=== PATIENT | female | born 1970 | race Caucasian/White ===

== ENCOUNTER 2020-08-14 14:39 | Inpatient (IN) | payer MEDICARE, MEDICAID ==
[~2020-08-14] VITALS: Ht 165.1 cm; Wt 58.1 kg
[2020-08-14 14:45] VITALS: BP 119/89
[2020-08-14] MEDS ORDERED: ZOLOFT100 MG PO (14:51)
[2020-08-14] MEDS ORDERED: ABILIFY10 MG PO (14:51)
[2020-08-14] MEDS ORDERED: METHOTREXA25 MG/1 M1 IM (14:51)
[2020-08-14] MEDS ORDERED: ZANAFLEX4 M1 PO (14:52)
[2020-08-14 15:47] LABS: ABSOLUTE BASOPHILS 0.1 thou/uL (0.0-0.2); ABSOLUTE EOSINOPHILS 0.6 thou/uL (0.0-0.7); ABSOLUTE LYMPHOCYTES 2.2 thou/uL (0.8-5.3); ABSOLUTE MONOCYTES 0.3 thou/uL (0.0-1.2); ABSOLUTE NEUTROPHILS 4.1 thou/uL (1.6-8.1); BASOPHILS 0.9 %; EOSINOPHILS 8.5 %; HEMATOCRIT 37.5 % (37.0-47.0); HEMOGLOBIN 12.6 gm/dL (12.0-15.0); LYMPHOCYTES 30.2 %; MCH 29.6 pg (26.0-34.0); MCHC 33.5 g/dL (28.0-37.0); MCV 88.5 fL (80.0-100.0); MONOCYTES 4.5 %; MPV 6.8 fl. (7.2-11.1); NUCLEATED RBCS 0 /100WBC; PLATELET COUNT* 317 thou/uL (150-400); POLYS 55.9 %; RBC 4.24 mil/uL (4.20-5.00); RDW-CV 13.9 % (10.5-14.5); WBC 7.3 thou/uL (4.0-11.0)
[2020-08-14 15:57] LABS: CALCIUM 8.7 mg/dL (8.5-10.1); CREATININE 0.7 mg/dL (0.6-1.3); POTASSIUM 3.9 mmol/L (3.5-5.1)
[2020-08-14 16:00] LABS: APTT 27.1 Seconds (25.0-31.3); PROTIME 10.3 Seconds (9.20-11.50)
[2020-08-14 16:22] LABS: ALBUMIN 3.5 g/dL (3.4-5.0); CK-MB MASS 0.6 ng/mL (<0.5-3.6); MAGNESIUM 2.3 mg/dL (1.8-2.4); TOTAL BILIRUBIN 0.5 mg/dL (<0.1-1.0); TOTAL PROTEIN 7.4 g/dL (6.4-8.2)
[2020-08-14] MEDS ORDERED: HYDROCODON-ACE1 EAC7 PO (18:45)
[2020-08-14 20:37] VITALS: BP 120/60
[2020-08-15 08:00] VITALS: BP 102/69
--- NOTE | 2020-08-15 09:34 | EKG ---
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: OVIDIO : 1970 Requested By: Neo Herrera Order Number: [id number] MD: Rodrick Perez Measurements Intervals [place] Rate: 84 P: 49 MS: 151 QRS: 62 QRSD: 82 T: 54 QT: 385 QTc: 456 Interpretive Statements Sinus rhythm Anterior infarct, old No previous ECG available for comparison Electronically Signed On 08-15-2020 9:34:10 CDT by Rodrick Perez [email or web address] <ELECTRONICALLY SIGNED> By: Rodrick Perez MD, [facility] 08/15/20 0934 1453 1453 Rodrick Perez MD, [facility] /EPI
--- NOTE | 2020-08-15 09:38 | EKG ---
[place] [address] ELECTROCARDIOGRAM REPORT Name: AMEE HEATH Room: [address]#: [id number] Admission: 08/14/20 Attend Phys: Maren Mcfarlane, Discharge: Date of : 72 Date of Service: 08/15/20 012 Report #: [id number] THIS REPORT FOR: //name// [facility] Test Date: 2020-08-15 Test Time: 01:21:01 Pat Name: AMEE HEATH Department: Room: [address] Gender: F Rodding Machine Tender: CSCHNORF : 1970 Requested By: Maren Mcfarlane Order Number: [id number] Keyshawn MD: Rodrick Perez Measurements Intervals [place] Rate: 66 P: 55 MT: 153 QRS: 70 QRSD: 86 T: 58 QT: 440 QTc: 461 Interpretive Statements Sinus rhythm Electronically Signed On 08-15-2020 9:38:16 CDT by Rodrick Perez [email or web address] <ELECTRONICALLY SIGNED> By: Rodrick Perez MD, [facility] 08/15/20 0938 0121 012 Rodrick Perez MD, FACC /EPI
[2020-08-15 12:00] VITALS: BP 113/68
[2020-08-15 16:00] VITALS: BP 114/74
[2020-08-15 20:35] VITALS: BP 132/72
[2020-08-16] VITALS (7 sets, daily range): BP systolic 112–136; BP diastolic 55–79
[2020-08-16 05:48] LABS: HEMATOCRIT 36.2 % (37.0-47.0); MCH 29.2 pg (26.0-34.0); MCHC 33.2 g/dL (28.0-37.0); MCV 87.8 fL (80.0-100.0); MPV 6.9 fl. (7.2-11.1); RBC 4.12 mil/uL (4.20-5.00); RDW-CV 13.8 % (10.5-14.5); WBC 5.8 thou/uL (4.0-11.0)
[2020-08-16 06:13] LABS: CALCIUM 8.7 mg/dL (8.5-10.1); CREATININE 0.6 mg/dL (0.6-1.3); POTASSIUM 4.3 mmol/L (3.5-5.1)
[2020-08-16] MEDS ORDERED: VALTREX 500 MG500 M1 PO (09:25)
[2020-08-16] MEDS ORDERED: NORCO5 PO (09:25)
== END 2020-08-16 14:35 | disposition home or self-care (01) | DRG 596 ==
LOC: M.ERS 14:39 → M.2W 19:05 → M.TBA-ER 19:05 → M.2W 20:42
PROVIDERS: Emergency Medicine Emergency Medical Services; Family Medicine; ADMIT Internal Medicine; ATTEND Internal Medicine
DX: B02.9 Zoster without complications (principal); F32.9 Major depressive disorder, single episode, unspecified; Z20.822 Contact with and (suspected) exposure to COVID-19; Z88.2 Allergy status to sulfonamides; Z88.8 Allergy status to other drugs, medicaments and biological substances; Z79.899 Other long term (current) drug therapy

== ENCOUNTER 2020-09-15 11:16 | Emergency (ER) | payer MEDICARE, MEDICAID ==
[~2020-09-15] VITALS: Ht 165.1 cm; Wt 59.0 kg
[~2020-09-15 11:16] MED LIST: ABILIFY10 MG PO; HYDROCODON-ACE1 EAC7 PO; METHOTREXA25 MG/1 M1 IM; NORCO5 PO; VALTREX 500 MG500 M1 PO; ZANAFLEX4 M1 PO; ZOLOFT100 MG PO
[2020-09-15] MEDS ORDERED: MOBIC7.5 MG PO (11:26)
[2020-09-15] MEDS ORDERED: ABILIFY10 MG PO (11:26)
[2020-09-15] MEDS ORDERED: PREDNISONE 20 M20 MG PO (11:27)
[2020-09-15] MEDS ORDERED: PERCOCET PO (11:33)
[2020-09-15 12:07] VITALS: BP 150/81
== END 2020-09-15 12:08 | disposition home or self-care (01) ==
LOC: M.ERS 11:16
DX: G89.29 Other chronic pain (principal); M32.9 Systemic lupus erythematosus, unspecified; Z91.041 Radiographic dye allergy status; Z88.2 Allergy status to sulfonamides; Z90.710 Acquired absence of both cervix and uterus; Z90.49 Acquired absence of other specified parts of digestive tract

== ENCOUNTER 2020-09-20 13:34 | Emergency (ER) | payer MEDICARE, MEDICAID ==
[~2020-09-20] VITALS: Ht 165.1 cm; Wt 59.0 kg
[~2020-09-20 13:34] MED LIST changes: +MOBIC7.5 MG PO; +PERCOCET PO; +PREDNISONE 20 M20 MG PO
[2020-09-20 13:58] LABS: URINE BILIRUBIN NEGATIVE (Negative); URINE BLOOD 1+ (Negative); URINE CLARITY CLEAR; URINE COLOR YELLOW; URINE GLUCOSE-RANDOM NEGATIVE (Negative); URINE KETONES NEGATIVE (Negative); URINE LEUKOCYTES NEGATIVE (Negative); URINE NITRITE NEGATIVE (Negative); URINE PROTEIN NEGATIVE (Negative); URINE SPECIFIC GRAVITY >= 1.030 (1.005-1.030); URINE UROBILINOGEN 0.2 E.U./dl (0.2-1.0)
[2020-09-20 14:00] LABS: HEMATOCRIT 38.2 % (37.0-47.0); HEMOGLOBIN 12.9 gm/dL (12.0-15.0); MCH 30.3 pg (26.0-34.0); MCHC 33.9 g/dL (28.0-37.0); MCV 89.5 fL (80.0-100.0); MPV 6.6 fl. (7.2-11.1); RBC 4.26 mil/uL (4.20-5.00); RDW-CV 16.1 % (10.5-14.5); WBC 10.7 thou/uL (4.0-11.0)
[2020-09-20 14:06] LABS: SQUAMOUS 0-3 Few /LPF (0-3)
[2020-09-20 14:06] LABS: AMP/METHAMP Negative (Negative); BARBITURATES Negative (Negative); BENZODIAZEPINES Negative (Negative); COCAINE Negative (Negative); METHADONE Negative (Negative); OPIATES Negative (Negative); PCP Negative (Negative); THC Negative (Negative)
[2020-09-20 14:07] LABS: BACTERIA 1-9 Few /HPF (None Seen); CASTS None Seen /LPF (None Seen); CRYSTALS None Seen /LPF (None Seen); MUCUS None Seen strn/LPF (None Seen); URINE RBC 0-2 Rare /HPF (0-2); URINE WBC None Seen /HPF (0-5)
[2020-09-20 14:09] LABS: CALCIUM 8.5 mg/dL (8.5-10.1); CREATININE 0.8 mg/dL (0.6-1.3); POTASSIUM 3.9 mmol/L (3.5-5.1)
[2020-09-20 14:14] LABS: ALBUMIN 3.8 g/dL (3.4-5.0); TOTAL BILIRUBIN 0.5 mg/dL (<0.1-1.0); TOTAL PROTEIN 7.4 g/dL (6.4-8.2)
[2020-09-20 15:21] VITALS: BP 143/89
--- NOTE | 2020-09-21 12:01 | EKG ---
[place] [address] ELECTROCARDIOGRAM REPORT Name: AMEE HEATH Room: [facility]#: [id number] Admission: 09/20/20 Attend Phys: Discharge: 09/20/20 Date of : 72 Date of Service: 09/20/20 1340 Report #: [id number] THIS REPORT FOR: //name// [facility] ED Test Date: 2020-09-20 Test Time: 13:40:46 Pat Name: AMEE HEATH Department: Room: Gender: F Litigation Legal Secretary: JOSE GUADALUPE : 1970 Requested By: Lemuel Sanchez Order Number: [id number] MD: William Roldan Measurements Intervals [place] Rate: 101 P: 62 [place]: 154 QRS: 75 QRSD: 80 T: 54 QT: 355 QTc: 461 Interpretive Statements Sinus tachycardia Consider right atrial enlargement Probable anteroseptal infarct, old Compared to ECG 08/15/2020 01:21:01 Myocardial infarct finding now present Sinus rhythm no longer present Electronically Signed On 09-21-2020 12:01:20 CDT by William Roldan [email or web address] <ELECTRONICALLY SIGNED> By: Bharat Roldan MD, [facility] 09/21/20 1201 1340 1340 Bharat Roldan MD, [facility] /EPI
== END 2020-09-20 15:22 | disposition home or self-care (01) ==
LOC: M.ERS 13:34
PROVIDERS: Emergency Medicine
DX: F41.9 Anxiety disorder, unspecified (principal); R42 Dizziness and giddiness; R51.9 Headache, unspecified; F17.210 Nicotine dependence, cigarettes, uncomplicated; Z91.041 Radiographic dye allergy status; Z88.2 Allergy status to sulfonamides; Z88.8 Allergy status to other drugs, medicaments and biological substances; Z90.710 Acquired absence of both cervix and uterus; Z90.49 Acquired absence of other specified parts of digestive tract; Z79.899 Other long term (current) drug therapy

== ENCOUNTER 2020-09-26 18:19 | Emergency (ER) | payer MEDICARE, MEDICAID ==
[~2020-09-26] VITALS: Ht 165.1 cm; Wt 61.2 kg
[2020-09-26] MEDS ORDERED: PREDNISONE 20 M20 M1 PO (19:05)
[2020-09-26] MEDS ORDERED: MOBIC7.5 MG PO (19:05)
[2020-09-26 20:34] LABS: ABSOLUTE BASOPHILS 0.1 thou/uL (0.0-0.2); ABSOLUTE EOSINOPHILS 0.3 thou/uL (0.0-0.7); ABSOLUTE LYMPHOCYTES 2.8 thou/uL (0.8-5.3); ABSOLUTE MONOCYTES 0.7 thou/uL (0.0-1.2); ABSOLUTE NEUTROPHILS 5.5 thou/uL (1.6-8.1); BASOPHILS 1.1 %; EOSINOPHILS 3.5 %; HEMATOCRIT 40.9 % (37.0-47.0); HEMOGLOBIN 13.7 gm/dL (12.0-15.0); LYMPHOCYTES 29.6 %; MCH 30.3 pg (26.0-34.0); MCHC 33.5 g/dL (28.0-37.0); MCV 90.5 fL (80.0-100.0); MONOCYTES 7.2 %; MPV 6.7 fl. (7.2-11.1); NUCLEATED RBCS 0 /100WBC; PLATELET COUNT* 301 thou/uL (150-400); POLYS 58.6 %; RBC 4.52 mil/uL (4.20-5.00); RDW-CV 16.5 % (10.5-14.5); WBC 9.4 thou/uL (4.0-11.0)
[2020-09-26 20:39] LABS: CALCIUM 9.1 mg/dL (8.5-10.1); CREATININE 0.7 mg/dL (0.6-1.3); POTASSIUM 3.8 mmol/L (3.5-5.1)
[2020-09-26 20:44] LABS: ALBUMIN 4.2 g/dL (3.4-5.0); TOTAL BILIRUBIN 0.5 mg/dL (<0.1-1.0)
[2020-09-26] MEDS ORDERED: VISTARIL 25 MG25 M1 PO (21:18)
[2020-09-26 21:30] VITALS: BP 115/65
--- NOTE | 2020-09-27 11:40 | EKG ---
[place] [address] ELECTROCARDIOGRAM REPORT Name: AMEE HEATH Room: [facility]#: [id number] Admission: 09/26/20 Attend Phys: Discharge: 09/26/20 Date of : 72 Date of Service: 09/26/20 1826 Report #: [id number] THIS REPORT FOR: //name// [facility] ED Test Date: 2020-09-26 Test Time: 18:26:29 Pat Name: AMEE HEATH Department: Room: Gender: Court Transcriber: : 1970 Requested By: Rosalia Zarate Order Number: [id number] MD: Rodrick Perez Measurements Intervals [place] Rate: 90 P: 68 [place]: 165 QRS: 66 QRSD: 86 T: 44 QT: 376 QTc: 460 Interpretive Statements Sinus rhythm Compared to ECG 09/20/2020 13:40:46 Sinus tachycardia no longer present Electronically Signed On 09-27-2020 11:39:52 CDT by Rodrick Perez [email or web address] <ELECTRONICALLY SIGNED> By: Rodrick Perez MD, [facility] 09/27/20 1139 1826 1826 Rodrick Perez MD, [facility] /EPI
== END 2020-09-26 21:33 | disposition home or self-care (01) ==
LOC: M.ERS 18:19
PROVIDERS: Physician Assistant
DX: F41.9 Anxiety disorder, unspecified (principal); R07.89 Other chest pain; M79.662 Pain in left lower leg; M32.9 Systemic lupus erythematosus, unspecified; M06.9 Rheumatoid arthritis, unspecified; F17.210 Nicotine dependence, cigarettes, uncomplicated; Z91.041 Radiographic dye allergy status; Z88.2 Allergy status to sulfonamides; Z90.49 Acquired absence of other specified parts of digestive tract; Z90.710 Acquired absence of both cervix and uterus; Z88.8 Allergy status to other drugs, medicaments and biological substances

== ENCOUNTER 2020-10-08 22:00 | Emergency (ER) | payer MEDICARE, MEDICAID ==
[~2020-10-08] VITALS: Ht 165.1 cm; Wt 62.6 kg
[~2020-10-08 22:00] MED LIST changes: +PREDNISONE 20 M20 M1 PO; +VISTARIL 25 MG25 M1 PO
[2020-10-08] MEDS ORDERED: ACYCLOVIR 800800 MG PO (22:09)
[2020-10-08] MEDS ORDERED: NEURONTIN 300M300 M2 PO (22:10)
[2020-10-08] MEDS ORDERED: PROTONIX40 M4 PO (22:10)
[2020-10-08] MEDS ORDERED: BUPROPION HCL150 M1 PO (22:10)
[2020-10-08 23:46] VITALS: BP 132/92
== END 2020-10-08 23:47 | disposition home or self-care (01) ==
LOC: M.ERS 22:00
DX: S83.8X1A Sprain of other specified parts of right knee, initial encounter (principal); M32.9 Systemic lupus erythematosus, unspecified; M06.9 Rheumatoid arthritis, unspecified; F17.210 Nicotine dependence, cigarettes, uncomplicated; Z90.49 Acquired absence of other specified parts of digestive tract; Z90.710 Acquired absence of both cervix and uterus; Z91.041 Radiographic dye allergy status; Z88.2 Allergy status to sulfonamides; Z88.8 Allergy status to other drugs, medicaments and biological substances; W01.0XXA Fall on same level from slipping, tripping and stumbling without subsequent striking against object, initial encounter; Y93.89 Activity, other specified; Y92.89 Other specified places as the place of occurrence of the external cause; Y99.8 Other external cause status

== ENCOUNTER → 2020-10-20 | Outpatient (CLI) | payer MEDICARE, MEDICAID ==
[~2020-10-20] MED LIST changes: +ACYCLOVIR 800800 MG PO; +BUPROPION HCL150 M1 PO; +NEURONTIN 300M300 M2 PO; +PROTONIX40 M4 PO
== END ==
LOC: M.CT 12:53
PROVIDERS: ATTEND Family Medicine
DX: R10.31 Right lower quadrant pain (principal)

== ENCOUNTER 2020-10-25 23:10 | Emergency (ER) | payer MEDICARE, MEDICAID ==
[~2020-10-25] VITALS: Ht 165.1 cm; Wt 63.5 kg
[2020-10-26 02:23] LABS: ABSOLUTE BASOPHILS 0.1 thou/uL (0.0-0.2); ABSOLUTE EOSINOPHILS 0.5 thou/uL (0.0-0.7); ABSOLUTE LYMPHOCYTES 2.4 thou/uL (0.8-5.3); ABSOLUTE MONOCYTES 0.8 thou/uL (0.0-1.2); ABSOLUTE NEUTROPHILS 7.6 thou/uL (1.6-8.1); BASOPHILS 0.9 %; EOSINOPHILS 4.3 %; HEMATOCRIT 37.3 % (37.0-47.0); HEMOGLOBIN 12.4 gm/dL (12.0-15.0); LYMPHOCYTES 21.4 %; MCH 29.6 pg (26.0-34.0); MCHC 33.3 g/dL (28.0-37.0); MONOCYTES 6.7 %; MPV 6.8 fl. (7.2-11.1); NUCLEATED RBCS 0 /100WBC; PLATELET COUNT* 280 thou/uL (150-400); POLYS 66.7 %; RBC 4.19 mil/uL (4.20-5.00); RDW-CV 15.1 % (10.5-14.5); WBC 11.4 thou/uL (4.0-11.0)
[2020-10-26 02:28] LABS: CALCIUM 8.3 mg/dL (8.5-10.1); CREATININE 0.8 mg/dL (0.6-1.3); POTASSIUM 4.1 mmol/L (3.5-5.1)
[2020-10-26 02:38] LABS: ALBUMIN 3.8 g/dL (3.4-5.0); TOTAL BILIRUBIN 0.3 mg/dL (<0.1-1.0); TOTAL PROTEIN 7.1 g/dL (6.4-8.2)
[2020-10-26] MEDS ORDERED: CYCLOBENZAPRINE5 MG PO (03:50)
[2020-10-26] MEDS ORDERED: TORADOL 10 MG T10 MG PO (03:50)
[2020-10-26 04:07] VITALS: BP 128/82
== END 2020-10-26 04:07 | disposition home or self-care (01) ==
LOC: M.ERS 23:10
PROVIDERS: Personal Emergency Response Attendant
DX: M43.6 Torticollis (principal); M06.9 Rheumatoid arthritis, unspecified; M32.9 Systemic lupus erythematosus, unspecified; F17.210 Nicotine dependence, cigarettes, uncomplicated; Z91.041 Radiographic dye allergy status; Z88.2 Allergy status to sulfonamides; Z88.8 Allergy status to other drugs, medicaments and biological substances; Z90.49 Acquired absence of other specified parts of digestive tract; Z90.710 Acquired absence of both cervix and uterus

== ENCOUNTER 2020-10-31 16:26 | Emergency (ER) | payer MEDICARE, MEDICAID ==
[~2020-10-31] VITALS: Ht 167.6 cm; Wt 63.5 kg
--- NOTE | ~2020-10-31 | EKG ---
[place] [address] ELECTROCARDIOGRAM REPORT Name: AMEE HEATH Room: [facility]#: [id number] Admission: 10/31/20 Attend Phys: Discharge: 10/31/20 Date of : [birth year] Date of Service: 10/31/201842 Report #: [id number] THIS REPORT FOR: //name// [facility] ED Test Date: 2020-10-31 Test Time: 18:43:55 Pat Name: AMEE HEATH Department: Room: Gender: F Detailer School Photographs: TB : 1970 Requested By: Rosalia Zaarte Order Number: [id number] MD: Measurements Intervals [place] Rate: 84 P: 59 MT: 166 QRS: 59 QRSD: 89 T: 44 QT: 371 QTc: 439 Interpretive Statements Sinus rhythm Anteroseptal infarct, age indeterminate Compared to ECG 09/26/2020 18:26:29 Myocardial infarct finding now present [email or web address] By: 42 1843 Epiphany Epiphany, /EPI
[~2020-10-31 16:26] MED LIST changes: +CYCLOBENZAPRINE5 MG PO; +TORADOL 10 MG T10 MG PO
[2020-10-31 18:40] LABS: URINE BILIRUBIN NEGATIVE (Negative); URINE BLOOD TRACE (Negative); URINE COLOR YELLOW; URINE GLUCOSE-RANDOM NEGATIVE (Negative); URINE KETONES NEGATIVE (Negative); URINE LEUKOCYTES-REFLEX TRACE (Negative); URINE NITRITE-REFLEX NEGATIVE (Negative); URINE PROTEIN NEGATIVE (Negative); URINE SPECIFIC GRAVITY >= 1.030 (1.005-1.030); URINE UROBILINOGEN 0.2 E.U./dl (0.2-1.0)
[2020-10-31 18:42] LABS: URINE CLARITY HAZY
[2020-10-31 18:55] LABS: BACTERIA-REFLEX None Seen /HPF (None Seen); CASTS None Seen /LPF (None Seen); CRYSTALS None Seen /LPF (None Seen); SQUAMOUS 0-3 Few /LPF (0-3); URINE RBC None Seen /HPF (0-2); URINE WBC-REFLEX 0-5 Rare /HPF (0-5)
[2020-10-31 18:57] LABS: ABSOLUTE BASOPHILS 0.1 thou/uL (0.0-0.2); ABSOLUTE EOSINOPHILS 0.6 thou/uL (0.0-0.7); ABSOLUTE LYMPHOCYTES 2.6 thou/uL (0.8-5.3); ABSOLUTE MONOCYTES 0.5 thou/uL (0.0-1.2); ABSOLUTE NEUTROPHILS 7.5 thou/uL (1.6-8.1); BASOPHILS 0.9 %; EOSINOPHILS 5.2 %; HEMATOCRIT 40.3 % (37.0-47.0); HEMOGLOBIN 13.1 gm/dL (12.0-15.0); MCH 29.2 pg (26.0-34.0); MCHC 32.6 g/dL (28.0-37.0); MCV 89.4 fL (80.0-100.0); MONOCYTES 4.6 %; MPV 7.1 fl. (7.2-11.1); NUCLEATED RBCS 0 /100WBC; PLATELET COUNT* 290 thou/uL (150-400); POLYS 66.3 %; RBC 4.51 mil/uL (4.20-5.00); RDW-CV 15.1 % (10.5-14.5); WBC 11.2 thou/uL (4.0-11.0)
[2020-10-31 19:03] LABS: CALCIUM 8.9 mg/dL (8.5-10.1); POTASSIUM 4.4 mmol/L (3.5-5.1)
[2020-10-31 19:08] LABS: ALBUMIN 4.1 g/dL (3.4-5.0); TOTAL BILIRUBIN 0.5 mg/dL (<0.1-1.0); TOTAL PROTEIN 7.8 g/dL (6.4-8.2)
[2020-10-31] MEDS ORDERED: NORCO5 PO ×2 (20:54→21:04)
[2020-10-31 21:16] VITALS: BP 131/70
--- NOTE | 2020-11-01 10:31 | EKG ---
[place] [address] ELECTROCARDIOGRAM REPORT Name: MARITA HEATHA MARIE Room: [facility]#: [id number] Admission: 10/31/20 Attend Phys: Discharge: 10/31/20 Date of : 72 Date of Service: 10/31/20 1843 Report #: [id number] THIS REPORT FOR: //name// [facility] ED Test Date: 2020-10-31 Test Time: 18:43:55 Pat Name: AMEE HEATH Department: Room: Gender: F Clinical Account Manager: TB : 1970 Requested By: Rosalia Zarate Order Number: [id number] MD: Rodrick Perez Measurements Intervals [place] Rate: 84 P: 59 RI: 166 QRS: 59 QRSD: 89 T: 44 QT: 371 QTc: 439 Interpretive Statements Sinus rhythm Anteroseptal infarct, age indeterminate Compared to ECG 09/26/2020 18:26:29 no change Electronically Signed On 11-01-2020 10:31:10 CDT by Rodrick Perez [email or web address] <ELECTRONICALLY SIGNED> By: Rodrick Perez MD, FACC 11/01/20 1031 1843 1843 Rodrick Perez MD, [facility] /EPI
== END 2020-10-31 21:17 | disposition home or self-care (01) ==
LOC: M.ERS 16:26
PROVIDERS: Physician Assistant
DX: R10.11 Right upper quadrant pain (principal); R10.13 Epigastric pain; F12.90 Cannabis use, unspecified, uncomplicated; F17.210 Nicotine dependence, cigarettes, uncomplicated; M32.9 Systemic lupus erythematosus, unspecified; M06.9 Rheumatoid arthritis, unspecified; Z88.2 Allergy status to sulfonamides; Z88.1 Allergy status to other antibiotic agents; Z79.899 Other long term (current) drug therapy; Z90.49 Acquired absence of other specified parts of digestive tract; Z90.710 Acquired absence of both cervix and uterus

== ENCOUNTER 2020-11-03 17:19 | Emergency (ER) | payer MEDICARE, MEDICAID ==
[~2020-11-03] VITALS: Ht 165.1 cm; Wt 63.5 kg
[2020-11-03 20:23] LABS: URINE BILIRUBIN NEGATIVE (Negative); URINE BLOOD TRACE (Negative); URINE CLARITY CLEAR; URINE COLOR YELLOW; URINE GLUCOSE-RANDOM NEGATIVE (Negative); URINE KETONES TRACE (Negative); URINE LEUKOCYTES-REFLEX NEGATIVE (Negative); URINE NITRITE-REFLEX NEGATIVE (Negative); URINE PROTEIN NEGATIVE (Negative); URINE UROBILINOGEN 0.2 E.U./dl (0.2-1.0)
[2020-11-03 21:00] LABS: ABSOLUTE BASOPHILS 0.1 thou/uL (0.0-0.2); ABSOLUTE EOSINOPHILS 0.6 thou/uL (0.0-0.7); ABSOLUTE LYMPHOCYTES 2.8 thou/uL (0.8-5.3); ABSOLUTE MONOCYTES 0.6 thou/uL (0.0-1.2); ABSOLUTE NEUTROPHILS 5.4 thou/uL (1.6-8.1); BASOPHILS 1.4 %; EOSINOPHILS 5.8 %; HEMATOCRIT 43.1 % (37.0-47.0); HEMOGLOBIN 14.6 gm/dL (12.0-15.0); LYMPHOCYTES 29.4 %; MCH 30.1 pg (26.0-34.0); MCHC 33.9 g/dL (28.0-37.0); MCV 88.9 fL (80.0-100.0); MONOCYTES 6.7 %; NUCLEATED RBCS 0 /100WBC; PLATELET COUNT* 333 thou/uL (150-400); POLYS 56.7 %; RBC 4.85 mil/uL (4.20-5.00); RDW-CV 14.8 % (10.5-14.5); WBC 9.5 thou/uL (4.0-11.0)
[2020-11-03 21:12] LABS: CALCIUM 9.1 mg/dL (8.5-10.1); CREATININE 0.9 mg/dL (0.6-1.3); POTASSIUM 4.5 mmol/L (3.5-5.1)
[2020-11-03 21:16] LABS: ALBUMIN 4.2 g/dL (3.4-5.0); TOTAL BILIRUBIN 0.4 mg/dL (<0.1-1.0)
[2020-11-03 21:38] VITALS: BP 129/85
== END 2020-11-03 21:41 | disposition home or self-care (01) ==
LOC: M.ERS 17:19
PROVIDERS: Physician Assistant
DX: R10.31 Right lower quadrant pain (principal); M06.9 Rheumatoid arthritis, unspecified; F17.210 Nicotine dependence, cigarettes, uncomplicated; Z90.49 Acquired absence of other specified parts of digestive tract; Z90.710 Acquired absence of both cervix and uterus; Z79.899 Other long term (current) drug therapy; Z91.041 Radiographic dye allergy status; Z88.2 Allergy status to sulfonamides; Z88.1 Allergy status to other antibiotic agents

== ENCOUNTER 2021-05-17 15:42 | Emergency (ER) | payer MEDICARE, MEDICAID ==
[~2021-05-17] VITALS: Ht 165.1 cm; Wt 68.0 kg
[2021-05-17] MEDS ORDERED: NORVASC5 MG PO (16:08)
[2021-05-17] MEDS ORDERED: CYMBALTA30 MG PO (16:09)
[2021-05-17] MEDS ORDERED: CLONAZEPAM 0.50.5 M1 PO (16:09)
[2021-05-17] MEDS ORDERED: SEROQUEL 50 MG50 M1 PO (16:10)
[2021-05-17] MEDS ORDERED: BENTYL 10 MG CA10 MG PO (16:10)
[2021-05-17 16:19] LABS: URINE BILIRUBIN NEGATIVE (Negative); URINE BLOOD TRACE (Negative); URINE CLARITY CLEAR; URINE COLOR YELLOW; URINE GLUCOSE-RANDOM NEGATIVE (Negative); URINE KETONES TRACE (Negative); URINE LEUKOCYTES-REFLEX 1+ (Negative); URINE NITRITE-REFLEX NEGATIVE (Negative); URINE PROTEIN NEGATIVE (Negative); URINE SPECIFIC GRAVITY >= 1.030 (1.005-1.030)
[2021-05-17 16:23] LABS: BACTERIA-REFLEX 1-9 Few /HPF (None Seen); CASTS None Seen /LPF (None Seen); CRYSTALS None Seen /LPF (None Seen); SQUAMOUS 4-10 Moderate /LPF (0-3); URINE RBC 3-10 Few /HPF (0-2); URINE WBC-REFLEX 6-15 Few /HPF (0-5)
[2021-05-17 16:26] LABS: ABSOLUTE BASOPHILS 0.1 thou/uL (0.0-0.2); ABSOLUTE EOSINOPHILS 0.3 thou/uL (0.0-0.7); ABSOLUTE LYMPHOCYTES 2.5 thou/uL (0.8-5.3); ABSOLUTE MONOCYTES 0.8 thou/uL (0.0-1.2); EOSINOPHILS 3.1 %; HEMATOCRIT 41.1 % (37.0-47.0); HEMOGLOBIN 13.3 gm/dL (12.0-15.0); LYMPHOCYTES 26.1 %; MCH 29.1 pg (26.0-34.0); MCHC 32.3 g/dL (28.0-37.0); MCV 90.1 fL (80.0-100.0); MPV 7.4 fl. (7.2-11.1); NUCLEATED RBCS 0 /100WBC; PLATELET COUNT* 259 thou/uL (150-400); POLYS 61.8 %; RBC 4.56 mil/uL (4.20-5.00); WBC 9.7 thou/uL (4.0-11.0)
[2021-05-17 16:32] LABS: CALCIUM 8.2 mg/dL (8.5-10.1); CREATININE 0.8 mg/dL (0.6-1.3); POTASSIUM 3.6 mmol/L (3.5-5.1)
[2021-05-17 16:36] LABS: ALBUMIN 3.5 g/dL (3.4-5.0); MAGNESIUM 2.1 mg/dL (1.8-2.4); TOTAL BILIRUBIN 0.6 mg/dL (<0.1-1.0); TOTAL PROTEIN 6.6 g/dL (6.4-8.2)
[2021-05-17] MEDS ORDERED: CARAFATE1 GM PO (18:53)
[2021-05-17 19:19] VITALS: BP 126/89
[2021-05-17] MEDS ORDERED: MACROBID 100 M100 MG PO (19:19)
--- NOTE | 2021-05-18 09:52 | EKG ---
[place] [address] ELECTROCARDIOGRAM REPORT Name: KUMARLORRAINE Room: [facility]#: [id number] Admission: 05/17/21 Attend Phys: Discharge: 05/17/21 Date of : 72 Date of Service: 05/17/21 1625 Report #: [id number] THIS REPORT FOR: //name// [facility] ED Test Date: 2021-05-17 Test Time: 16:25:54 Pat Name: AMEE HEATH Department: Room: Gender: F Manager Pharmacy: LAUREN : 1970 Requested By: Bruce Hunter Order Number: [id number] MD: Rodrick Perez Measurements Intervals [place] Rate: 79 P: 64 [place]: 165 QRS: 70 QRSD: 100 T: 55 QT: 404 QTc: 464 Interpretive Statements Sinus rhythm septal infarct, age indeterminate Compared to ECG 10/31/2020 18:43:55 No significant changes Electronically Signed On 05-18-2021 9:52:34 OLD COIN DEALER by Rodrick Perez [email or web address] <ELECTRONICALLY SIGNED> By: Rodrick Perez MD, [facility] 05/18/21 0952 1625 1625 Rodrick Perez MD, [facility] /EPI
== END 2021-05-17 19:20 | disposition home or self-care (01) ==
LOC: M.ERS 15:42
PROVIDERS: Physician Assistant Medical
DX: N39.0 Urinary tract infection, site not specified (principal); R10.13 Epigastric pain; F32.9 Major depressive disorder, single episode, unspecified; F17.210 Nicotine dependence, cigarettes, uncomplicated; Z90.49 Acquired absence of other specified parts of digestive tract; Z90.710 Acquired absence of both cervix and uterus; Z79.899 Other long term (current) drug therapy; Z91.02 Food additives allergy status; Z88.2 Allergy status to sulfonamides

== ENCOUNTER 2021-05-22 10:21 | Emergency (ER) | payer MEDICARE, MEDICAID ==
[~2021-05-22] VITALS: Ht 162.6 cm; Wt 68.0 kg
[~2021-05-22 10:21] MED LIST changes: +BENTYL 10 MG CA10 MG PO; +CARAFATE1 GM PO; +CLONAZEPAM 0.50.5 M1 PO; +CYMBALTA30 MG PO; +MACROBID 100 M100 MG PO; +NORVASC5 MG PO; +SEROQUEL 50 MG50 M1 PO
[2021-05-22 10:59] LABS: URINE BILIRUBIN NEGATIVE (Negative); URINE BLOOD TRACE (Negative); URINE CLARITY CLOUDY; URINE COLOR YELLOW; URINE GLUCOSE-RANDOM NEGATIVE (Negative); URINE KETONES NEGATIVE (Negative); URINE LEUKOCYTES-REFLEX 1+ (Negative); URINE NITRITE-REFLEX NEGATIVE (Negative); URINE PROTEIN NEGATIVE (Negative); URINE SPECIFIC GRAVITY >= 1.030 (1.005-1.030); URINE UROBILINOGEN 0.2 E.U./dl (0.2-1.0)
[2021-05-22 11:14] LABS: BACTERIA-REFLEX >30 Many /HPF (None Seen); SQUAMOUS >10 Many /LPF (0-3); URINE RBC None Seen /HPF (0-2); URINE WBC-REFLEX 6-15 Few /HPF (0-5)
[2021-05-22 11:15] LABS: CASTS None Seen /LPF (None Seen); CRYSTALS None Seen /LPF (None Seen); MUCUS 0-3 Light strn/LPF (None Seen)
[2021-05-22 11:20] LABS: ABSOLUTE BASOPHILS 0.1 thou/uL (0.0-0.2); ABSOLUTE EOSINOPHILS 0.3 thou/uL (0.0-0.7); ABSOLUTE LYMPHOCYTES 2.2 thou/uL (0.8-5.3); ABSOLUTE MONOCYTES 0.5 thou/uL (0.0-1.2); ABSOLUTE NEUTROPHILS 4.3 thou/uL (1.6-8.1); BASOPHILS 1.3 %; EOSINOPHILS 4.4 %; HEMATOCRIT 41.9 % (37.0-47.0); MCH 29.2 pg (26.0-34.0); MCHC 33.5 g/dL (28.0-37.0); MONOCYTES 7.2 %; MPV 7.3 fl. (7.2-11.1); NUCLEATED RBCS 0 /100WBC; PLATELET COUNT* 267 thou/uL (150-400); POLYS 58.1 %; RBC 4.81 mil/uL (4.20-5.00); RDW-CV 13.6 % (10.5-14.5); WBC 7.4 thou/uL (4.0-11.0)
[2021-05-22 11:31] LABS: CALCIUM 8.6 mg/dL (8.5-10.1); CREATININE 0.8 mg/dL (0.6-1.3); POTASSIUM 3.7 mmol/L (3.5-5.1)
[2021-05-22 11:35] LABS: ALBUMIN 3.6 g/dL (3.4-5.0); TOTAL BILIRUBIN 0.8 mg/dL (<0.1-1.0); TOTAL PROTEIN 6.8 g/dL (6.4-8.2)
[2021-05-22] MEDS ORDERED: OMEPRAZOLE 20 M20 M1 PO (14:12)
[2021-05-22] MEDS ORDERED: BENTYL 10 MG CA10 M1 PO (14:12)
[2021-05-22 14:25] VITALS: BP 140/79
--- NOTE | 2021-05-22 15:11 | EKG ---
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: : 1970 Requested By: Chrissie Velasquez Order Number: [id number] MD: Enzo Pope Measurements Intervals [place] Rate: 77 P: 46 DC: 157 QRS: 63 QRSD: 111 T: 56 QT: 409 QTc: 463 Interpretive Statements Sinus rhythm Low voltage, precordial leads Compared to ECG 05/17/2021 16:25:54 Low QRS voltage now present Myocardial infarct finding no longer present Electronically Signed On 05-22-2021 15:11:44 REPRODUCTION SPECIALIST by Enzo Pope [email or web address] <ELECTRONICALLY SIGNED> By: Enzo Pope MD, [facility] 05/22/21 1511 1114 1114 Enzo Pope MD, [facility] /EPI
== END 2021-05-22 14:25 | disposition home or self-care (01) ==
LOC: M.ERS 10:21
PROVIDERS: Student in an Organized Health Care Education/Training Program
DX: R10.813 Right lower quadrant abdominal tenderness (principal); F32.9 Major depressive disorder, single episode, unspecified; F17.210 Nicotine dependence, cigarettes, uncomplicated; Z90.49 Acquired absence of other specified parts of digestive tract; Z90.710 Acquired absence of both cervix and uterus; Z79.899 Other long term (current) drug therapy; Z79.891 Long term (current) use of opiate analgesic; Z79.1 Long term (current) use of non-steroidal anti-inflammatories (NSAID); Z88.2 Allergy status to sulfonamides; Z88.8 Allergy status to other drugs, medicaments and biological substances; Z91.041 Radiographic dye allergy status